=== PATIENT | female | born 1965 | race Caucasian/White ===

== ENCOUNTER → 2017-03-08 | Outpatient (CLI) | payer OTHER | LOC: FIMAGING 08:36 | PROVIDERS: ATTEND Internal Medicine | DX: Z12.31 Encounter for screening mammogram for malignant neoplasm of breast (principal); Z80.3 Family history of malignant neoplasm of breast ==

== ENCOUNTER → 2018-02-03 | Outpatient (CLI) | payer OTHER | LOC: BMCIMAGING 18:04 | PROVIDERS: ATTEND Family Medicine | DX: S89.91XA Unspecified injury of right lower leg, initial encounter (principal); X50.0XXA Overexertion from strenuous movement or load, initial encounter; Y93.23 Activity, snow (alpine) (downhill) skiing, snowboarding, sledding, tobogganing and snow tubing; V00.328A Other snow-ski accident, initial encounter ==

== ENCOUNTER → 2018-02-15 | Outpatient (CLI) | payer OTHER | LOC: FIMAGING 18:27 | PROVIDERS: ATTEND Orthopaedic Surgery | DX: S83.241A Other tear of medial meniscus, current injury, right knee, initial encounter (principal); M94.9 Disorder of cartilage, unspecified ==

== ENCOUNTER → 2018-07-17 | Outpatient (CLI) | payer OTHER | LOC: BMCIMAGING 08:18 ==